=== PATIENT | male | born 1980 | race Caucasian/White ===

== ENCOUNTER 2017-04-01 10:59 | Emergency (ER) | payer OTHER ==
[2017-04-01 11:24] VITALS: O2SAT 99
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
--- NOTE | 2017-04-01 13:37 | RAD ---
PROCEDURE: Left Knee Radiographs. HISTORY: Pain. COMPARISON: None. FINDINGS: BONES: No evidence of acute displaced fracture nor dislocation. The osseous structures appear intact. JOINTS: Joint spaces preserved JOINT EFFUSION: No significant joint effusion OTHER FINDINGS: None. IMPRESSION: No evidence of acute displaced fracture nor dislocation.
--- NOTE | 2017-04-01 13:50 | RAD ---
PROCEDURE: Cervical Spine Radiographs. Two views of the cervical spine performed. Limitation of the exam. Note that the odontoid is poorly seen on AP view with head in the extended kumar position HISTORY: Pain. COMPARISON: No prior FINDINGS: BONES: No evidence of acute displaced fracture nor dislocation the seen within DISC SPACES: Disc space heights maintained. Small marginal anterior osteophyte formation seen at the C4-C5 as well C5-C6 levels. SOFT TISSUES: Normal. No prevertebral soft tissue swelling. Tiny calcification within the posterior soft tissues at the adjacent to the posterior margin of the C5 spinous process consistent with calcification of the ligamentum nuchae. OTHER FINDINGS: None. IMPRESSION: Limited study. No fracture seen. Minor DJD as above
[2017-04-01 14:26] VITALS: BP 128/76; PULSE 62; RESP 18; TEMP 98.2
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
== END 2017-04-01 14:25 | disposition home or self-care (01) ==
LOC: H.ER 10:59
DX: S09.90XA Unspecified injury of head, initial encounter (principal); M54.2 Cervicalgia; V43.62XA Car passenger injured in collision with other type car in traffic accident, initial encounter; Y92.410 Unspecified street and highway as the place of occurrence of the external cause; I10 Essential (primary) hypertension

== ENCOUNTER 2018-10-09 16:21 | Emergency (ER) | payer OTHER ==
--- NOTE | 2018-10-09 17:16 | ED PDOC ---
HPI: Hypertension/Hypotension Time Seen by Provider: 10/09/18 16:52 Chief Complaint (Nursing): High Blood Pressure Past Medical History Vital Signs: Last Vital Signs Temp 98.4 F 10/09/18 16:42 Pulse 79 10/09/18 16:42 Resp 17 10/09/18 16:42 BP 175/110 H 10/09/18 16:42 Pulse Ox 100 10/09/18 16:42 - Medical History PMH: HTN - Allergies Allergies/Adverse Reactions: Allergies Allergy/AdvReac Type Severity Reaction Status Date / Time No Known Allergies Allergy Verified 10/09/18 16:48 - ECG O2 Sat by Pulse Oximetry: 100 Disposition - Disposition Forms: Pant[employer] (Zambian)
--- NOTE | 2018-10-09 17:19 | ED PDOC ---
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 Patient was seen at Urgent Care to obtain medical clearance so he can start a new job. There he was found to have elevated blood pressure and elevated glucose. Patient was advised to come to the ER for further evaluation. He started having a headache at the Urgent Care center. Patient admits that he had been told his sugar is elevated and that he has high blood pressure, but he never followed up or saw a doctor. For the last three months, he has been experiencing RUQ pain that is worse with movement but denies any nausea, vomiting, diarrhea, constipation or change in appetite. PMD: no regular doctor Past Medical History Reviewed: Historical Data, Nursing Documentation, Vital Signs Vital Signs: Last Vital Signs Temp 98.4 F 10/09/18 16:42 Pulse 79 10/09/18 16:42 Resp 17 10/09/18 16:42 BP 175/110 H 10/09/18 16:42 Pulse Ox 100 10/09/18 16:42 - Medical History PMH: Diabetes, HTN - Surgical History Surgical History: No Surg Hx - Family History Family History: States: Hypertension - Social History Current smoker - smoking cessation education provided: No Ex-Smoker (has not smoked in the last 12 months): No - Home Medications Home Medications: Ambulatory Orders Medication Instructions Recorded Clotrimazole 1% Cream [Lotrimin 1%] 1 appl TP BID #1 tube 10/09/18 hydroCHLOROthiazide [Hydrodiuril] 25 mg PO DAILY #30 tab 10/09/18 metFORMIN [glucOPHAGE] 500 mg PO DAILY #30 tab 10/09/18 - Allergies Allergies/Adverse Reactions: Allergies Allergy/AdvReac Type Severity Reaction Status Date / Time No Known Allergies Allergy Verified 10/09/18 16:48 Review of Systems ROS Statement: Except As Marked, All Systems Reviewed And Found Negative Gastrointestinal: Positive for: Abdominal Pain. Negative for: Nausea, Vomiting, Diarrhea, Constipation Neurological: Positive for: Headache Physical Exam - Reviewed Nursing Documentation Reviewed: Yes Vital Signs Reviewed: Yes - Physical Exam Appears: Positive for: Well, No Acute Distress Head Exam: Positive for: ATRAUMATIC, NORMOCEPHALIC Skin: Positive for: Warm, Dry Eye Exam: Positive for: EOMI, PERRL ENT: Negative for: Pharyngeal Erythema, Tonsillar Exudate Neck: Positive for: Painless ROM, Supple Cardiovascular/Chest: Positive for: Regular Rate, Rhythm. Negative for: Murmur Respiratory: Positive for: Normal Breath Sounds. Negative for: Respiratory Distress Gastrointestinal/Abdominal: Positive for: Tenderness (mild tenderness to palpat ion in the RUQ), Other (slighlty protuberant) Back: Positive for: Normal Inspection. Negative for: Decreased ROM Extremity: Positive for: Pedal Edema (trace bilateral leg edema) Lymphatic: Negative for: Adenopathy Neurologic/Psych: Positive for: Alert. Negative for: Motor/Sensory Deficits - Laboratory Results Result Diagrams: 10/09/18 17:15 10/09/18 17:15 - ECG O2 Sat by Pulse Oximetry: 100 (RA) Pulse Ox Interpretation: Normal Medical Decision Making Medical Decision Making: Time: 1701 Initial Impression: hypertension and hyperglycemia Initial Plan: --CT Head --EKG --BNP --CMP --Lipase --Magnesium --Phosphorous --Thyroid stimulating hormone --CBC with differentials --UA --US abdomen Time: 1756 CT head: FINDINGS: HEMORRHAGE: No intracranial hemorrhage. BRAIN: No mass effect or edema. The spivey-white matter differentiation appears intact. Please note that MRI with diffusion imaging is more sensitive in the detection of acute ischemic event. VENTRICLES: No hydrocephalus. CALVARIUM: Unremarkable. PARANASAL SINUSES: Unremarkable as visualized. No significant inflammatory changes. MASTOID AIR CELLS: Unremarkable as visualized. No inflammatory changes. OTHER FINDINGS: None. IMPRESSION: No acute intracranial pathology identified. Time: 1854 US abdomen: FINDINGS: LIVER: Measures 13.9 cm in sagittal dimension. Echogenic liver may be seen in setting of hepatic parenchymal disease or fatty infiltration. No focal hepatic mass identified. The main portal vein appears patent with normal directional flow. No intrahepatic bile duct dilatation. GALLBLADDER: No gallstones. No gallbladder wall thickening. Negative sonographic Wilhelm's sign as assessed by the paper novelty maker. COMMON BILE DUCT: Measures 2 mm. PANCREAS: Not well visualized. RIGHT KIDNEY: Measures 12.6 x 6.0 x 6.2 cm. No obstructing calculus or hydronephrosis identified. LEFT KIDNEY: Measures 12.2 x 6.2 x 5.8 cm. No obstructing calculus or hydronephrosis identified. SPLEEN: Measures approximately 12.2 cm. AORTA: Limited views appear unremarkable. IVC: Limited views appear unremarkable. OTHER FINDINGS: None. IMPRESSION: Echogenic liver may be seen in setting of hepatic parenchymal disease or fatty infiltration. Scribe Attestation: Documented by Janelle Lorenzo, acting as a scribe for Carin Pagan MD. Provider Scribe Attestation: All medical record entries made by the Scribe were at my direction and personally dictated by me. I have reviewed the chart and agree that the record accurately reflects my personal performance of the history, physical exam, medical decision making, and the department course for this patient. I have also personally directed, reviewed, and agree with the discharge instructions and disposition. Disposition - Clinical Impression Clinical Impression: Hypertension, Hyperglycemia, Tinea corporis Counseled Patient/Family Regarding: Studies Performed, Diagnosis, Need For Followup, Rx Given - Disposition Referrals: [facility] [Outside] (FOLLOWUP WITH PCP OR CLINIC IN A WEEK FOR REEVALUATION) Disposition: Routine/Home Disposition Time: 19:00 Condition: STABLE Additional Instructions: START YOUR MEDICATIONS RIGHT AWAY FOLLOWUP WITH YOUR PCP OR CLINIC IN A WEEK FOR REEVALUATION Prescriptions: Clotrimazole 1% Cream [Lotrimin 1%] 1 appl TP BID #1 tube hydroCHLOROthiazide [Hydrodiuril] 25 mg PO DAILY #30 tab metFORMIN [glucOPHAGE] 500 mg PO DAILY #30 tab Instructions: High Blood Pressure (DC), Hyperglycemia, Adult (DC), Diabetes and Diet, Low Salt Diet, Ringworm (DC)
[2018-10-09 17:40] LABS: BASO # 0.1 K/uL (0.0-0.2); BASO % 0.5 % (0.0-2.0); EOS % 0.2 % (0.0-4.0); HEMOGLOBIN 16.8 g/dL (12.0-18.0); LYMPH # 3.2 K/uL (1.0-4.3); LYMPH % 30.1 % (20.0-40.0); MEAN CELL VOLUME 86.4 fl (80.0-94.0); MEAN CORPUSCULAR HEMOGLOBIN 29.7 pg (27.0-31.0); MEAN CORPUSCULAR HGB CONC 34.4 g/dL (33.0-37.0); MEAN PLATELET VOLUME 9.5 fl (7.2-11.7); MONO # 0.6 K/uL (0.0-0.8); MONO % 5.8 % (0.0-10.0); NEUT # 6.8 K/uL (1.8-7.0); NEUT % 63.4 % (50.0-75.0); NRBC % 0.1 % (0.0-0.0); RBC 5.65 Mil/uL (4.40-5.90); RED CELL DISTRIBUTION WIDTH 13.4 % (11.5-14.5); WHITE BLOOD COUNT 10.7 K/uL (4.8-10.8)
[2018-10-09 17:57] LABS: ALB/GLOB RATIO 1.2 (1.0-2.1); ALBUMIN 4.3 g/dL (3.5-5.0); ALT/SGPT 37 U/L (21-72); AST/SGOT 27 U/L (17-59); BLOOD UREA NITROGEN 14 mg/dl (9-20); CALCIUM 9.3 mg/dL (8.4-10.2); GFR NON-AFRICAN AMERICAN > 60; LIPASE 65 U/L (23-300)
--- NOTE | 2018-10-09 18:01 | CT ---
Date of service: 10/09/2018 PROCEDURE: CT HEAD WITHOUT CONTRAST. HISTORY: DIZZINESS HEADACHE COMPARISON: Noncontrast head CT performed 04/01/17 TECHNIQUE: Axial computed tomography images were obtained through the head/brain without intravenous contrast. Radiation dose: Total exam DLP = 901.4 mGy-cm. This CT exam was performed using one or more of the following dose reduction techniques: Automated exposure control, adjustment of the mA and/or kV according to patient size, and/or use of iterative reconstruction technique. FINDINGS: HEMORRHAGE: No intracranial hemorrhage. BRAIN: No mass effect or edema. The spivey-white matter differentiation appears intact. Please note that MRI with diffusion imaging is more sensitive in the detection of acute ischemic event. VENTRICLES: No hydrocephalus. CALVARIUM: Unremarkable. PARANASAL SINUSES: Unremarkable as visualized. No significant inflammatory changes. MASTOID AIR CELLS: Unremarkable as visualized. No inflammatory changes. OTHER FINDINGS: None. IMPRESSION: No acute intracranial pathology identified.
--- NOTE | 2018-10-09 18:59 | US ---
HISTORY: RUQ pain COMPARISON: Gallbladder ultrasound performed 09/04/09 TECHNIQUE: Sonographic evaluation of the abdomen. FINDINGS: LIVER: Measures 13.9 cm in sagittal dimension. Echogenic liver may be seen in setting of hepatic parenchymal disease or fatty infiltration. No focal hepatic mass identified. The main portal vein appears patent with normal directional flow. No intrahepatic bile duct dilatation. GALLBLADDER: No gallstones. No gallbladder wall thickening. Negative sonographic Wilhelm's sign as assessed by the rn or lvn. COMMON BILE DUCT: Measures 2 mm. PANCREAS: Not well visualized. RIGHT KIDNEY: Measures 12.6 x 6.0 x 6.2 cm. No obstructing calculus or hydronephrosis identified. LEFT KIDNEY: Measures 12.2 x 6.2 x 5.8 cm. No obstructing calculus or hydronephrosis identified. SPLEEN: Measures approximately 12.2 cm. AORTA: Limited views appear unremarkable. IVC: Limited views appear unremarkable. OTHER FINDINGS: None. IMPRESSION: Echogenic liver may be seen in setting of hepatic parenchymal disease or fatty infiltration.
[2018-10-09 19:08] VITALS: BP 140/95; PULSE 67; RESP 16; TEMP 98
[2018-10-09 19:25] VITALS: O2SAT 100
--- NOTE | 2018-10-10 08:41 | CARD ---
APPROVED REPORT Date of service: 10/09/2018 EKG Measurement Heart [id number] <Conclusion> Normal sinus rhythm Minimal volatge criteria for left ventricular hypertrophy Borderline ECG
== END 2018-10-09 19:32 | disposition home or self-care (01) ==
LOC: H.ER 16:21
DX: I10 Essential (primary) hypertension (principal); E11.65 Type 2 diabetes mellitus with hyperglycemia; B35.4 Tinea corporis; Z79.84 Long term (current) use of oral hypoglycemic drugs

== ENCOUNTER 2019-01-17 12:21 | Emergency (ER) | payer SELFPAY ==
[2019-01-17 12:30] VITALS: BMI 39.1
[2019-01-17 12:31] VITALS: BP 150/89; PULSE 65; RESP 18; TEMP 97.7; O2SAT 100
[2019-01-17] MEDS ORDERED: Tdap Vaccine 0.5 ml Vial (10-64 yrs) IM ONE ×2 (12:37→12:50)
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
--- NOTE | 2019-01-17 14:42 | RAD ---
Date of service: 01/17/2019 PROCEDURE: Right middle finger radiographs. HISTORY: puncture wound COMPARISON: None. TECHNIQUE: AP radiograph of the right hand, as well as spot oblique and lateral images of index finger were obtained. 3 views obtained. FINDINGS: RIGHT MIDDLE FINGER: Right middle finger normal, without fracture of focal lesion. Remainder of the right hand (as seen on the AP view) grossly. No cortical destructive changes. JOINTS: Normal. SOFT TISSUES: Few tiny densities are seen overlying the at the level of the distal aspect middle phalanx ulnar aspect 4th finger; findings probably represent surface artifact though tiny opaque foreign bodies cannot be completely excluded. No evidence of subcutaneous air. OTHER FINDINGS: None. IMPRESSION: No evidenc of acute displaced fracture nor dislocation. No cortical destructive changes. No evidence of subcutaneous emphysema Probable surface artifact overlying the soft tissues 4th finger as described
== END 2019-01-17 13:36 | disposition home or self-care (01) ==
LOC: H.ER 12:21
DX: L03.011 Cellulitis of right finger (principal); E11.9 Type 2 diabetes mellitus without complications; I10 Essential (primary) hypertension; Z79.84 Long term (current) use of oral hypoglycemic drugs; Z23 Encounter for immunization